=== PATIENT | female | born 1980 | race Caucasian/White ===

== ENCOUNTER 2018-06-13 17:31 | Emergency (ER) | payer BC ==
[2018-06-13 18:40] VITALS: BP 153/102
--- NOTE | 2018-06-13 20:38 | UC ---
Throat Pain/Nasal Luiz HPI - HPI Summary HPI Summary: Pt. is a 37 y.o female who presents to the for a sore throat x 1 week. Associated sxs of nasal congestion, left ear pain and PND. Denies fever, chills , abd. pain, V/D. Sxs are mild in severity. No past medical hx. No current modifying factors. - History of Current Complaint Chief Complaint: UCRespiratory Stated Complaint: SORE THROAT Time Seen by Provider: 06/13/18 18:35 Hx Obtained From: Patient Hx Last Menstrual Period: 1.5 WEEK AGO Pain Intensity: 2 - Allergies/Home Medications Allergies/Adverse Reactions: Allergies Allergy/AdvReac Type Severity Reaction Status Date / Time Penicillins Allergy Hives Verified 06/13/18 18:35 Home Medications: Home Medications Norethindrone AC-Eth Estradiol [08/28] 1 tab PO DAILY 06/13/18 [History Confirmed 06/13/18] PMH/Surg Hx/FS Hx/Imm Hx Previously Healthy: Yes - Surgical History Surgical History: Yes Surgery Procedure, Year, and Place: - Family History Known Family History: Positive: Hypertension - Social History Occupation: Employed Full-time Lives: With Family Alcohol Use: Weekly Substance Use Type: None Smoking Status (MU): Never Smoked Tobacco Have You Smoked in the Last Year: No - Immunization History Most Recent Influenza Vaccination: never Most Recent Tetanus Shot: few years ago Most Recent Pneumonia Vaccination: never Review of Systems Constitutional: Negative Skin: Negative Eyes: Negative ENT: Sore Throat, Sinus Congestion Respiratory: Negative Cardiovascular: Negative Gastrointestinal: Negative Neurological: Negative Is Patient Immunocompromised?: No All Other Systems Reviewed And Are Negative: Yes Physical Exam Triage Information Reviewed: Yes Appearance: Well-Appearing - Pt. sititng on exam table in NAD. Vital Signs: Initial Vital Signs Temp 98.6 F 06/13/18 18:33 Pulse 91 06/13/18 18:33 Resp 18 06/13/18 18:33 BP 153/102 06/13/18 18:33 Pulse Ox 97 06/13/18 18:33 Vital Signs Reviewed: Yes Eyes: Positive: Conjunctiva Clear ENT: Positive: TMs normal, Other - Oral pharynx is injected. Mild edema to left tonsil. No excudates. Uvula is midline. No muffled voice or trismus Dental Exam: Normal Neck: Positive: Supple, Nontender, Enlarged Nodes @ - mild left cervical Respiratory: Positive: Lungs clear, Normal breath sounds Cardiovascular: Positive: RRR Neurological Exam: Normal Psychological Exam: Normal Skin Exam: Normal Throat Pain/Nasal Course/Dx - Course Course Of Treatment: Pt. presenting with sore throat and sinus congestion x 1 week. She is afebrile and nontoxic. Her exam is unremarkable. Negative rapid strep. Pt. concerned for other possible pathogens, throat culture ordered. Suspect viral etiology. Advised to continue supportive care. Increase fluids and rest. Tylenol r motrin as directed. WIll call if culture is positve. Otherwise f.u with PCP and return to if sxs change or worsen. - Differential Dx/Diagnosis Differential Diagnosis/HQI/PQRI: Epiglottitis, Influenza, Laryngitis, Pharyngitis, Tonsillitis, URI Provider Diagnoses: 1. Pharyngitis 2. Viral syndrome Discharge - Sign-Out/Discharge Documenting (check all that apply): Patient Departure All imaging exams completed and their final reports reviewed: No Studies - Discharge Plan Condition: Good Disposition: HOME Patient Education Materials: Upper Respiratory Infection (ED) Referrals: [facility] [Outside] [facility] [place] [facility] [Outside] Additional Instructions: Schedule a follow up appointment with the [facility] Will call if throat culture comes back positive Continue NSAIDS for pain as directed Can try over the counter decongestant such as mucinex D Return to if symptoms change or worsen - Billing Disposition and Condition Condition: GOOD Disposition: Home
== END 2018-06-13 19:27 | disposition home or self-care (01) ==
LOC: UCEAST 17:31
DX: B34.9 Viral infection, unspecified (principal); J02.9 Acute pharyngitis, unspecified; Z88.0 Allergy status to penicillin
CPT/HCPCS: 87070; 87651; 99201; G0463